=== PATIENT | female | born 1950 | race Hispanic/Latino ===

== ENCOUNTER 2018-10-16 14:15 | Emergency (ER) | payer MEDICARE ==
[~2018-10-16 14:15] MED LIST: ACET-2247 PO; AMLO10TA6 PO; Aspirin PO; FAMO-136 PO; HYDR-2132 PO; LEVO150T11 PO; MONT10TA24 PO; PRAV20TA4 PO
[2018-10-16] MEDS ORDERED: ACETAMINOPHEN 325 MG TAB ONE (15:31)
[2018-10-16 15:39] LABS: BASOPHILS % (AUTO) 0.3 % (0.0-5.0); EOSINOPHILS % (AUTO) 2.2 % (0.0-8.0); HEMATOCRIT 37.5 % (36-48); LYMPHOCYTES % (AUTO) 13.4 % (21.0-51.0); MEAN CORPUSCULAR HEMOGLOBIN 31.6 pg (27.0-33.0); MEAN CORPUSCULAR HGB CONC 34.4 g/dL (32.0-36.0); MEAN CORPUSCULAR VOLUME 92.1 fL (79-99); MONOCYTES % (AUTO) 8.6 % (3.0-13.0); NEUTROPHILS % (AUTO) 75.5 % (40.0-77.0); PLATELET COUNT (AUTO) 202 K/uL (130-400); RED BLOOD CELL COUNT(AUTO) 4.07 MIL/uL (4.00-5.50); WHITE BLOOD COUNT (AUTO) 9.5 K/uL (4.8-10.8)
[2018-10-16] MEDS ORDERED: IPRATROPIUM/ALBUTEROL SULFATE 3 ML SOLUTION IH ONE (15:45)
[2018-10-16 15:55] LABS: APPEARANCE,URINE Clear (CLEAR); BILIRUBIN,URINE Negative (NEGATIVE); COLOR,URINE Yellow (YELLOW); GLUCOSE, URINE (UA) Negative (NEGATIVE); KETONES,URINE Trace mg/dL (NEGATIVE); LEUKOCYTE ESTERASE ,URINE Negative (NEGATIVE); NITRATE,URINE Negative (NEGATIVE); OCCULT BLOOD,URINE Negative (NEGATIVE); PH,URINE 6.5 (5.0-8.0); PROTEIN,URINE POS 1+ (NEGATIVE)
[2018-10-16 15:56] LABS: CREATININE 0.7 mg/dL (0.5-1.5); POTASSIUM 3.5 mmol/L (3.5-5.1)
[2018-10-16 16:02] LABS: ALBUMIN 3.3 g/dL (3.5-5.0); BILIRUBIN,TOTAL 1.5 mg/dL (0.2-1.0); TOTAL PROTEIN, SERUM 8.6 g/dL (6.0-8.3)
[2018-10-16 16:30] LABS: BACTERIA,URINE Rare /HPF (None Seen); RBC,URINE 0-1 /HPF (0-1); SQUAMOUS EPITHELIAL CELL,UR Few /HPF (0-2); WBC,URINE 0-1 /HPF (0-1)
[2018-10-16 16:31] LABS: MUCUS,URINE Rare LPF (None Seen)
[2018-10-16] MEDS ORDERED: SODIUM CHLORIDE 0.9% 100 ML IV ONE (16:52)
[2018-10-16] MEDS ORDERED: METHYLPREDNISOLONE SOD SUCC 40MG/ML 1ML ONE (16:52)
[2018-10-16] MEDS ORDERED: AZITHROMYCIN 250 MG TABLET PO ONE (16:52)
[2018-10-16] MEDS ORDERED: CEFTRIAXONE SODIUM 1 GM ONE (16:52)
== END 2018-10-16 17:21 | disposition home or self-care (01) ==
LOC: EDH 14:15
DX: J18.9 Pneumonia, unspecified organism (principal); J45.31 Mild persistent asthma with (acute) exacerbation; E78.5 Hyperlipidemia, unspecified; Z90.710 Acquired absence of both cervix and uterus
CPT/HCPCS: 36415; 71046; 80053; 81001; 82550; 83605; 84484; 85025; 87040 ×2; 87088; 87804 ×2; 93005; 94640; 96374; 96375; 99284; J0696; J2920

== ENCOUNTER 2020-06-28 19:19 | Emergency (ER) | payer MEDICARE ==
[~2020-06-28 19:19] MED LIST changes: -ACET-2247 PO; +ALBU90AE IH; +ALEN70TA10 PO; -AMLO10TA6 PO; +AMLO10TA7 PO; -Aspirin PO; +CEPH500C2 PO; +CHOL200012 PO; +CLIN300C9 PO; +CLOT15CR23 TP; -FAMO-136 PO; +FLUT1DIS IH; -HYDR-2132 PO; +IBUP-2076 PO; -MONT10TA24 PO; +OMEP20TA25 PO; +ONDA4TAB10 PO; +SMX; +TMP; +TYL3B PO
[2020-06-28] MEDS ORDERED: KETOROLAC TROMETHAMINE 15MG/ML ONE (19:57)
[2020-06-28] MEDS ORDERED: MORPHINE SULFATE 4 MG/1ML SYG ONE (19:58)
[2020-06-28 20:17] LABS: BASOPHILS % (AUTO) 0.5 % (0.0-5.0); EOSINOPHILS % (AUTO) 3.2 % (0.0-8.0); HEMATOCRIT 41.6 % (36-48); LYMPHOCYTES % (AUTO) 29.1 % (21.0-51.0); MEAN CORPUSCULAR HEMOGLOBIN 32.4 pg (27.0-33.0); MEAN CORPUSCULAR HGB CONC 34.4 g/dL (32.0-36.0); MEAN CORPUSCULAR VOLUME 94.3 fL (79-99); MONOCYTES % (AUTO) 8.3 % (3.0-13.0); NEUTROPHILS % (AUTO) 58.7 % (40.0-77.0); PLATELET COUNT (AUTO) 213 K/uL (130-400); RED BLOOD CELL COUNT(AUTO) 4.41 MIL/uL (4.00-5.50); RED CELL DISTRIBUTION WIDTH 13.6 % (11.0-15.5); WHITE BLOOD COUNT (AUTO) 6.5 K/uL (4.8-10.8)
[2020-06-28 20:28] LABS: CREATININE 0.6 mg/dL (0.5-1.5); POTASSIUM 4.1 mmol/L (3.5-5.1)
[2020-06-28 20:33] LABS: ALBUMIN 3.9 g/dL (3.5-5.0); BILIRUBIN,TOTAL 1.1 mg/dL (0.2-1.0); MAGNESIUM 1.6 mg/dL (1.80-2.40); TOTAL PROTEIN, SERUM 8.7 g/dL (6.0-8.3)
[2020-06-28] MEDS ORDERED: MAGNESIUM 2GM PREMIX 50ML 50 ML IV ONE (20:53)
[2020-06-28 20:55] LABS: APPEARANCE,URINE Clear (CLEAR); BILIRUBIN,URINE Negative (NEGATIVE); COLOR,URINE Yellow (YELLOW); GLUCOSE, URINE (UA) Negative (NEGATIVE); KETONES,URINE Negative (NEGATIVE); LEUKOCYTE ESTERASE ,URINE Negative (NEGATIVE); NITRATE,URINE Negative (NEGATIVE); OCCULT BLOOD,URINE Negative (NEGATIVE); PROTEIN,URINE Negative (NEGATIVE)
== END 2020-06-28 22:00 | disposition home or self-care (01) ==
LOC: EDH 19:19
DX: E83.42 Hypomagnesemia (principal); M79.10 Myalgia, unspecified site; I10 Essential (primary) hypertension; E11.9 Type 2 diabetes mellitus without complications; J45.909 Unspecified asthma, uncomplicated; Z90.710 Acquired absence of both cervix and uterus; Z79.899 Other long term (current) drug therapy
CPT/HCPCS: 36415; 80053; 81003; 82550; 83735; 84484; 85025; 93005; 96374; 96375; 99284; J1885; J2270; J3475